=== PATIENT | male | born 1990 | race Asian ===

== ENCOUNTER 2021-05-04 00:40 | Emergency (ER) | payer OTHER ==
[2021-05-04 02:13] VITALS: BP 106/65; PULSE 64; TEMP 98.1; BMI 27.1
== END 2021-05-04 03:19 | disposition home or self-care (01) ==
LOC: JER 00:40
DX: S61.012A Laceration without foreign body of left thumb without damage to nail, initial encounter (principal); W29.0XXA Contact with powered kitchen appliance, initial encounter; Y93.G1 Activity, food preparation and clean up
CPT/HCPCS: 99281-25

== ENCOUNTER 2021-05-09 00:28 | Emergency (ER) | payer OTHER ==
[2021-05-09 01:20] VITALS: BP 103/69; PULSE 72; TEMP 98.3; BMI 24.1
== END 2021-05-09 01:48 | disposition home or self-care (01) ==
LOC: JER 00:28
DX: Z48.00 Encounter for change or removal of nonsurgical wound dressing (principal)
CPT/HCPCS: 99281-25